=== PATIENT | female | born 1945 | race Caucasian/White ===

== ENCOUNTER → 2016-11-26 | Outpatient (REF) | payer MEDICARE ==
[~2016-11-26] MED LIST: /ADVA50050 IN; /CIPR75TA OR; /TIOT18INH INH; ALBUTEROL INH; CALCCHW12 OR; CETI10TA OR; COLA100C2 OR; FERR325T OR; MIACALCIN; MULTIVIT PO; NABU750T OR; SERT100T OR; SIMV40TA2 OR; VICO5TAB OR
[2016-11-26 18:02] LABS: MEAN CORPUSCULAR HEMOGLOBIN 32.1 pg (27.0-33.0); MEAN CORPUSCULAR HGB CONC 32.5 g/dl (32.0-36.5); MEAN CORPUSCULAR VOLUME 98.7 fl (80.0-96.0); RED CELL DISTRIBUTION WIDTH 13.6 % (11.5-14.5); WHITE BLOOD COUNT 9.2 K/mm3 (4.0-10.0)
[2016-11-26 18:25] LABS: ALBUMIN 3.5 GM/DL (3.2-5.2); ALBUMIN/GLOBULIN RATIO 0.95 (1.00-1.93); ALKALINE PHOSPHATASE 84 U/L (45-117); ALT/SGPT 18 U/L (12-78); ANION GAP 6 MEQ/L (8-16); AST/SGOT 22 U/L (15-37); BILIRUBIN,TOTAL 0.2 MG/DL (0.2-1.0); BLOOD UREA NITROGEN 15 MG/DL (7-18); CALCIUM LEVEL 8.8 MG/DL (8.8-10.2); CARBON DIOXIDE LEVEL 31 MEQ/L (21-32); CHLORIDE LEVEL 104 MEQ/L (98-107); CHOLESTEROL LEVEL 190 MG/DL (<200); CREATININE FOR GFR 0.73 MG/DL (0.55-1.02); GLOMERULAR FILTRATION RATE > 60.0 (>39); GLUCOSE, FASTING 93 MG/DL (83-110); POTASSIUM SERUM 4.2 MEQ/L (3.5-5.1); SODIUM LEVEL 141 MEQ/L (136-145); TOTAL PROTEIN 7.2 GM/DL (6.4-8.2); TRIGLYCERIDES LEVEL 167 MG/DL (<150)
== END ==
LOC: M SFHCCLAY 10:17
PROVIDERS: ATTEND Nurse Practitioner Family
DX: K21.9 Gastro-esophageal reflux disease without esophagitis (principal); E78.5 Hyperlipidemia, unspecified; E55.9 Vitamin D deficiency, unspecified
CPT/HCPCS: 80053; 80061; 82306; 85027; G0463

== ENCOUNTER → 2017-02-10 | Outpatient (CLI) | payer MEDICARE ==
[~2017-02-10] MED LIST changes: +ISOVUE-370 76% 100ML VIAL (Q9967) As Ordered ONE
--- NOTE | 2017-02-10 09:36 | REP ---
CT of the chest with IV contrast: There are right paratracheal surgical clips, elevation of the right mainstem bronchus and volume loss in the right hemithorax compatible with right upper lobectomy. This is unchanged. There is opacification and retraction of the right middle lobe inferiorly. This has worsened in the interim compatible with chronic collapse and infiltrate versus chronic collapse and scarring. There is interstitial coarsening and reticulonodular densities throughout the lung vang bilaterally, not significantly changed. There is bronchiectasis, unchanged. No focal infiltrate or effusion. There is no mediastinal or hilar adenopathy. No axillary adenopathy. Thoracic aorta is unremarkable. Cardiac size is normal. In the upper abdomen there is a cyst in the dome of the liver measuring 2.5 cm, unchanged. There is cholelithiasis, unchanged. The spleen may be enlarged, and is not included in entirety. However, this is unchanged. There is no adrenal mass. Impression: There is progressive collapse and increased density inferiorly in the right middle lobe which could represent scarring and contraction or infiltrate and contraction. Otherwise, there are chronic stable changes consisting of reticulonodular pattern and bronchiectasis, unchanged. No other focal infiltrate. No effusion. No adenopathy. Cholelithiasis, unchanged. Hepatic cyst, unchanged. Question of splenomegaly, unchanged. Signed by Mulugeta Cochran MD 02/10/2017 09:27 A
== END ==
LOC: M RAD 08:33
PROVIDERS: ATTEND Internal Medicine Pulmonary Disease
DX: J44.9 Chronic obstructive pulmonary disease, unspecified (principal)
CPT/HCPCS: 71260; Q9967

== ENCOUNTER → 2017-02-25 | Outpatient (REF) | payer MEDICARE ==
[~2017-02-25] MED LIST changes: -ISOVUE-370 76% 100ML VIAL (Q9967) As Ordered ONE
== END ==
LOC: M LAB REF 16:49
PROVIDERS: ATTEND Internal Medicine Pulmonary Disease
DX: J44.9 Chronic obstructive pulmonary disease, unspecified (principal)

== ENCOUNTER → 2017-03-26 | Outpatient (CLI) | payer MEDICARE ==
--- NOTE | 2017-03-26 14:12 | REP ---
CT of the chest without IV contrast: Comparison is the most recent prior study of 02/10/2017. There is also a comparison study dated 01/03/2016. There are again findings compatible with right upper lobectomy. There is chronic collapse and diffuse interstitial thickening throughout the right middle lobe compatible with post radiation scarring, similar to the 02/10/2017 study but progressed from 01/03/2016. There is chronic pleural parenchymal scarring in the deep lateral sulcus of the right hemithorax, also unchanged from both prior studies. Bronchiectasis and reticulonodular pattern throughout the lung parenchyma is again noted compatible with chronic lung disease, not significantly changed. There are no new nodular densities. No acute infiltrates or effusions. No mediastinal adenopathy is identified. No axillary adenopathy. In the absence of IV contrast the study is insensitive for hilar adenopathy. Impression: No mil of lung nodules or masses are identified. Chronic collapse and interstitial thickening in the right middle lobe compatible with postradiation scarring. Diffuse chronic lung disease characterized by bronchiectasis and reticulonodular pattern. Signed by Mulugeta Cochran MD 03/26/2017 02:04 P
== END ==
LOC: M RAD 11:03
PROVIDERS: ATTEND Internal Medicine Pulmonary Disease
DX: R91.8 Other nonspecific abnormal finding of lung field (principal); Z85.118 Personal history of other malignant neoplasm of bronchus and lung

== ENCOUNTER → 2017-11-17 | Outpatient (REF) | payer MEDICARE ==
[2017-11-17 11:45] LABS: HEMATOCRIT 39.4 % (36.0-47.0); HEMOGLOBIN 12.9 g/dl (12.0-15.5); MEAN CORPUSCULAR HEMOGLOBIN 32.3 pg (27.0-33.0); MEAN CORPUSCULAR HGB CONC 32.7 g/dl (32.0-36.5); MEAN CORPUSCULAR VOLUME 98.7 fl (80.0-96.0); PLATELET COUNT, AUTOMATED 167 10^3/uL (150-450); RED BLOOD COUNT 3.99 10^6/uL (4.00-5.40); RED CELL DISTRIBUTION WIDTH 13.1 % (11.5-14.5); WHITE BLOOD COUNT 6.6 10^3/uL (4.0-10.0)
[2017-11-17 11:51] LABS: TOTAL 25(OH) VITAMIN D 36.2 NG/ML (30.0-100.0)
[2017-11-17 12:39] LABS: ALBUMIN 3.7 GM/DL (3.2-5.2); ALBUMIN/GLOBULIN RATIO 0.97 (1.00-1.93); ALKALINE PHOSPHATASE 85 U/L (45-117); ALT/SGPT 24 U/L (12-78); ANION GAP 6 MEQ/L (8-16); AST/SGOT 22 U/L (7-37); BILIRUBIN,TOTAL 0.3 MG/DL (0.2-1.0); BLOOD UREA NITROGEN 18 MG/DL (7-18); CALCIUM LEVEL 9.1 MG/DL (8.8-10.2); CARBON DIOXIDE LEVEL 31 MEQ/L (21-32); CHLORIDE LEVEL 107 MEQ/L (98-107); CHOLESTEROL LEVEL 196 MG/DL (<200); CREATININE FOR GFR 0.82 MG/DL (0.55-1.30); GLOMERULAR FILTRATION RATE > 60.0 (>39); GLUCOSE, FASTING 91 MG/DL (70-100); HDL CHOLESTEROL 69 MG/DL (>40); LDL CHOLESTEROL 104.2 MG/DL (<100); NON-HDL-C 127 MG/DL; POTASSIUM SERUM 4.3 MEQ/L (3.5-5.1); SODIUM LEVEL 144 MEQ/L (136-145); TOTAL PROTEIN 7.5 GM/DL (6.4-8.2); TRIGLYCERIDES LEVEL 114 MG/DL (<150)
== END ==
LOC: M SFHCCLAY 07:40
DX: K21.9 Gastro-esophageal reflux disease without esophagitis (principal); E78.5 Hyperlipidemia, unspecified; E55.9 Vitamin D deficiency, unspecified
CPT/HCPCS: 80053

== ENCOUNTER → 2018-03-09 | Outpatient (CLI) | payer MEDICARE ==
[~2018-03-09] MED LIST changes: -/ADVA50050 IN; -/CIPR75TA OR; -/TIOT18INH INH; -ALBUTEROL INH; -CALCCHW12 OR; -CETI10TA OR; -COLA100C2 OR; -FERR325T OR; +ISOVUE-370 76% 100ML VIAL (Q9967) As Ordered; -MIACALCIN; -MULTIVIT PO; -NABU750T OR; -SERT100T OR; -SIMV40TA2 OR; -VICO5TAB OR
== END ==
LOC: M RAD 10:25
DX: J44.9 Chronic obstructive pulmonary disease, unspecified (principal)
CPT/HCPCS: Q9967

== ENCOUNTER → 2019-03-10 | Outpatient (CLI) | payer MEDICARE ==
[~2019-03-10] MED LIST changes: +/CIPR75TA OR; +ADVA1AER2 IN; +ALBUTEROL INH; +CALCCHW12 OR; +CETI10TA OR; +COLA100C2 OR; +FERR325T OR; -ISOVUE-370 76% 100ML VIAL (Q9967) As Ordered; +MIACALCIN; +MULTIVIT PO; +NABU750T OR; +SERT100T OR; +SIMV40TA2 OR; +SPIR1CAP INH; +VICO5TAB OR
--- NOTE | 2019-03-10 13:07 | REP ---
CT of the chest without contrast Indication: COPD. Comparison: CT chest with contrast of 03/09/2018. Technique: Axial CT of the chest was performed from the thoracic inlet to the upper abdomen. No intravenous contrast was administered. Sagittal coronal soft tissue reformatted images and coronal MIP images were provided. Findings: Postsurgical changes of the right upper lobectomy with volume loss and mediastinal shift are redemonstrated. There is a similar appearance of air bronchograms within the atelectatic/fibrotic right middle lobe, now with decreased aeration compared to prior. There is similar extensive pleural parenchymal scarring within the right lung apex. There are are subpleural fibrotic changes within the right lung base with minimal increase in lung as of a right posterolateral subpleural opacity, measuring 26 mm in AP dimension, previously 23 mm (image 78). A subpleural 5 mm nodular opacity within the lingula and a 4 mm ground-glass nodular opacity within the left lower lobe are not significantly changed (image 64, 69). There is similar bilateral bronchiectasis. No new suspicious nodule is identified. There is an similar right pleural thickening at the lung base. There is no pleural effusion. Within the limitation of a noncontrast CT examination, there is no axillary or mediastinal lymphadenopathy. The imaged portion of the thyroid is unremarkable. There are atherosclerotic calcifications of the thoracic aorta. Heart size is normal. There is no pericardial effusion. Within the imaged portion of the upper abdomen, a hepatic dome cyst and a calcified gallstone are redemonstrated. There is a similar rounded subcutaneous anterior abdominal wall midline lesion, likely a sebaceous cyst. There are bilateral elastofibromas within the posterior chest wall musculature. There is thoracic spondylosis. Impression: Postsurgical changes of right upper lobectomy redemonstrated. An similar scarring of the right middle lobe, now with decreased aeration compared to prior. There are chronic nodular opacities within the lung bases, one of which has increased in size and bears watching on follow up. No new suspicious nodule identified. Electronically Signed by Juan Parrish MD 03/10/2019 12:58 P
== END ==
LOC: M RAD 10:58
PROVIDERS: ATTEND Internal Medicine Pulmonary Disease
DX: J44.9 Chronic obstructive pulmonary disease, unspecified (principal)